=== PATIENT | male | born 1955 | race Caucasian/White ===

== ENCOUNTER 2016-03-04 06:17 | Inpatient (IN) | payer BC ==
[~2016-03-04] VITALS: Ht 167.6 cm; Wt 97.3 kg
[2016-03-04] MEDS ORDERED: SODIUM CHLORIDE 0.9% 1,000 ML ONE ×2 (07:28→09:55)
[2016-03-04] MEDS ORDERED: LACT RINGERS 1,000 ML IV ONE (07:28)
[2016-03-04] MEDS ORDERED: ONDANSETRON 4 MG VIAL IV PRN (10:10)
[2016-03-04] MEDS ORDERED: ALU/MAG/SIM 30 ML UDC PO PRN (10:10)
[2016-03-04] MEDS ORDERED: BISACODYL 10 MG SUPP RECTAL PRN (10:10)
[2016-03-04] MEDS ORDERED: SODIUM CHLORIDE 0.9% 1,000 ML IV SCH (10:10)
[2016-03-04] MEDS ORDERED: SALINE FLUSH 10 ML FLUSH PRN (10:10)
[2016-03-04] MEDS ORDERED: MAG HYDROX 30 ML UDC PO PRN (10:10)
[2016-03-04] MEDS ORDERED: BISACODYL EC 5 MG TAB PO PRN (10:10)
[2016-03-04] MEDS ORDERED: ACETAMINOPHEN 325 MG TAB PO PRN (10:10)
[2016-03-04 11:26] VITALS: BP_SYST 122; BP_SYST 130; RESP 20; TEMP 97.7
[2016-03-04 11:28] VITALS: BMI 34.6
[2016-03-04] MEDS: SODIUM BICARB 8.4% 150 ML in DEXTROSE 5% 1,000 ML IV SCH ×2 (13:03→21:14)
[2016-03-04] MEDS: OMNIPAQUE 240 MG/ML, 50 ML PO SCH ×2 (14:35→16:44)
[2016-03-04 15:22] VITALS: BP_SYST 126; RESP 20; TEMP 98.3
[2016-03-04] MEDS ORDERED: MISSING DOSE XX ONE (18:30)
[2016-03-04] MEDS: SALINE FLUSH 10 ML FLUSH SCH (20:00)
[2016-03-04 20:33] VITALS: BP_SYST 128; RESP 20; TEMP 99.2
[2016-03-04 22:29] VITALS: BP_SYST 138; RESP 18; TEMP 98.2
[2016-03-05 04:27] VITALS: BP_SYST 135; RESP 18; TEMP 98.1
[2016-03-05] MEDS: SODIUM BICARB 8.4% 150 ML in DEXTROSE 5% 1,000 ML IV SCH (05:26)
[2016-03-05] MEDS: SODIUM CHLORIDE 0.9% FLUSH BAG 500 ML IV SCH (06:00)
[2016-03-05 07:31] VITALS: BP_SYST 104; RESP 18; TEMP 98.9
[2016-03-05] MEDS: SALINE FLUSH 10 ML FLUSH SCH ×2 (07:34→20:00)
[2016-03-05] MEDS ORDERED: KCL CR 20 MEQ TAB PO ONE (11:15)
[2016-03-05] MEDS: SODIUM CHLOR 0.9% W/KCL 20MEQ 1,000 ML IV SCH ×2 (11:30→22:04)
[2016-03-05 11:31] VITALS: BP_SYST 109; RESP 20; TEMP 98.1
[2016-03-05 15:10] VITALS: BP_SYST 109; RESP 20; TEMP 98.3
[2016-03-05 19:35] VITALS: BP_SYST 123; RESP 18; TEMP 98.7
[2016-03-05 23:01] VITALS: BP_SYST 120; RESP 20; TEMP 98.6
[2016-03-06 02:52] VITALS: BP_SYST 102; RESP 18; TEMP 98.6
[2016-03-06] MEDS: SODIUM CHLORIDE 0.9% FLUSH BAG 500 ML IV SCH (06:00)
[2016-03-06] MEDS: SODIUM CHLOR 0.9% W/KCL 20MEQ 1,000 ML IV SCH ×2 (07:18→17:35)
[2016-03-06 07:22] VITALS: BP_SYST 113; RESP 20; TEMP 97.8
[2016-03-06] MEDS: SALINE FLUSH 10 ML FLUSH SCH ×2 (07:46→20:00)
[2016-03-06 11:02] VITALS: BP_SYST 96; RESP 20; TEMP 98.4
[2016-03-06] MEDS ORDERED: KCL CR 20 MEQ TAB PO ONE ×2 (11:30→15:00)
[2016-03-06 14:59] VITALS: BP_SYST 98; RESP 20; TEMP 98.3
[2016-03-06 19:58] VITALS: BP_SYST 92; RESP 20; TEMP 98.1
[2016-03-06 22:58] VITALS: BP_SYST 115; RESP 18; TEMP 98.9
[2016-03-07] MEDS: SODIUM CHLORIDE 0.9% FLUSH BAG 500 ML IV SCH (04:53)
[2016-03-07] MEDS: SODIUM CHLOR 0.9% W/KCL 20MEQ 1,000 ML IV SCH (04:54)
[2016-03-07 07:40] VITALS: BP_SYST 119; RESP 20; TEMP 97.8
[2016-03-07] MEDS: SALINE FLUSH 10 ML FLUSH SCH (08:00)
[2016-03-07 11:16] VITALS: BP_SYST 122; RESP 20; TEMP 97.6
[2016-03-07 12:51] VITALS: BP_SYST 122; RESP 20; TEMP 97.6
== END 2016-03-07 13:41 | disposition home or self-care (01) | DRG 683 ==
LOC: ENRESERVTM → ENRESERVDT → ER 06:17 → EMR 10:06 → ENPENDDIS 10:06 → 4NT 11:20
PROVIDERS: ADMIT Internal Medicine; ATTEND Internal Medicine
DX: N17.9 Acute kidney failure, unspecified (principal); E87.2 Acidosis; F41.9 Anxiety disorder, unspecified; K52.9 Noninfective gastroenteritis and colitis, unspecified; E86.0 Dehydration; E87.6 Hypokalemia
CPT/HCPCS: 74176; 80053; 85025; 93005; 94799; 96360; 96361; 99222; 99232; 99239